=== PATIENT | female | born 1955 | race Caucasian/White ===

== ENCOUNTER 2016-12-16 22:09 | Emergency (ER) | payer BC ==
[~2016-12-16] VITALS: Ht 162.6 cm; Wt 101.8 kg
[~2016-12-16 22:09] MED LIST: IBUP200T58 PO; RANITADINE; azor
[2016-12-16] MEDS ORDERED: HYDR-971 PO (23:07)
--- NOTE | 2016-12-16 23:10 | PHYS DOC ---
General Chief Complaint: KNEE INJURY Stated Complaint: LEFT KNEE INJURY Time Seen by MD: 22:25 Source: patient Exam Limitations: no limitations Problems: History of Present Illness Initial Comments Pt is 61/F to ED c/o left knee pain. Pt has h/o meniscus tear, cortisone shot last week follows with ortho. Tonight tried to turn felt pop lateral joint line with severe pain. Ambulates on toes, no numbness/tingling/weakness/radiating sx. No prearrival tx. Some swelling noted, no leg giving out or bony TTP. No trauma. Onset: this evening Severity: severe Pain/Injury Location: left knee Method of Injury: twisted Modifying Factors: worse with jarring, worse with movement, improves with pain medication, improves with rest Allergies: Coded Allergies: latex (Verified Allergy, 07/27/13) Past Medical History Medical History: other (L meniscal tear) Surgical History: noncontributory Social History Smoker: non-smoker Alcohol: none Drugs: none Review of Systems Constitutional: denies chills, denies fever Respiratory: denies cough, denies shortness of breath Cardiovascular: denies chest pain, denies palpitations Gastrointestinal: denies nausea, denies vomiting Genitourinary: denies frequency, denies hematuria Musculoskeletal: see HPI Psychiatric/Neurological: denies numbness, denies paresthesia, denies weakness Physical Exam General Appearance: mild distress, obese Neck: non-tender, supple Cardiovascular/Respiratory: normal peripheral pulses, normal breath sounds Back: no CVA tenderness, no vertebral tenderness Knees: left knee other (joint line TTP no bony TTP, collateral ligs intact bridget inconclusive due to pt pain, mild effusion) Neurologic/Tendon: normal sensation, normal motor functions, normal tendon functions, responds to pain, no evidence tendon injury Psychiatric: alert, oriented x 3 Skin: normal color, warm/dry Orders, Labs, Meds L Knee: no acute osseous abnormality interp by me Departure Time of Disposition: 23:07 Disposition: 01 HOME, SELF-CARE Diagnosis: Internal Derangement Left Knee NOS Condition: GOOD Patient Instructions: Knee Effusion, RICE - Routine Care for Injuries, Easy-to- Read Additional Instructions: Nonweight bearing crutches only. Wear knee immobilizer when not up and active. RICE, see handout. Rx: norco 5mg #20 Take medication with food. Take OTC stool softeners and increase fluid intake to avoid constipation. Follow up with your orthopedic surgeon, call tomorrow to schedule. Return to ED with new or changing symptoms. NICANOR ÁLVAREZ DO December 16, 2016 23:10
[2016-12-16] MEDS ORDERED: ONDANSETRON ODT 4 MG TAB.RAPDIS PO ONE (23:15)
[2016-12-16] MEDS ORDERED: HYDROcodone/APAP 10/325 1 TAB TABLET PO ONE (23:15)
[2016-12-17 00:10] VITALS: BP 163/87
--- NOTE | 2016-12-17 07:38 | RAD ---
Left knee with patella, 4 views, 12/16/2016: History: Knee trauma pain No fracture or dislocation is identified. There is minimal marginal spurring at the knee joint and at the patellofemoral articulation. There is mild subcutaneous edema. IMPRESSION: No acute bony abnormality is detected.
== END 2016-12-17 00:10 | disposition home or self-care (01) ==
LOC: ER 22:09
DX: M23.92 Unspecified internal derangement of left knee (principal); Z91.040 Latex allergy status
CPT/HCPCS: 29505; 73564; 99284; Q0162

== ENCOUNTER → 2017-05-19 | Outpatient (CLI) | payer BC ==
[~2017-05-19] MED LIST changes: +HYDR-971 PO
--- NOTE | 2017-05-20 13:20 | RAD ---
DATE: May 19, 2017 EXAM: MAMMO EVELYN SCREENING BILATERAL HISTORY: Screening study. COMPARISON: September 22, 2009 This study was interpreted with the benefit of Computerized Aided Detection (CAD). 2-D digital mammographic views of both breasts were performed in the CC and MLO projections. 3-D digital tomosynthesis of both breasts were performed in the CC and MLO projections and reviewed on a computer workstation. FINDINGS: The breast parenchyma is heterogeneously dense. There are no dominant suspicious masses, suspicious microcalcifications or evidence of architectural distortion. IMPRESSION: No mammographic indicators for malignancy. BI-RADS CATEGORY: 1 NEGATIVE RECOMMENDED FOLLOW-UP: 12M 12 MONTH FOLLOW-UP PQRS compliance statement: Patient information was entered into a reminder system with a target due date May 20, 2018 for the next mammogram. Mammography is a sensitive method for finding small breast cancers, but it does not detect them all and is not a substitute for careful clinical examination. A negative mammogram does not negate a clinically suspicious finding and should not result in delay in biopsying a clinically suspicious abnormality. "Our facility is accredited by the [employer] Mammography Program." The patient's breast density may affect the ability of mammography to detect breast cancer. There are 4 categories of breast density, A, B, C and D. Breast density A means that most of the breast tissue is replaced with adipose tissue and therefore is not dense. Breast density B means that the breast tissue is mildly dense and scattered. Breast density C means that the breast tissue is heterogeneously dense. Breast density D means that the breast tissue is very dense. Breast densities especially C and D may decrease the sensitivity of mammography to detect breast cancer. Therefore, the patient may benefit from 3-D breast mammography (3D breast tomography) as a part of their screening mammogram. Insurance may or may not pay for this additional imaging. The patient's breast density based on today's mammogram is category C.
== END | disposition home or self-care (01) ==
LOC: MAMMO 15:11
PROVIDERS: ATTEND Nurse Practitioner Family
DX: Z12.31 Encounter for screening mammogram for malignant neoplasm of breast (principal)
CPT/HCPCS: 77063; G0202; 77067

== ENCOUNTER → 2018-05-22 | Outpatient (CLI) | payer BC ==
--- NOTE | 2018-05-22 16:31 | RAD ---
DATE: 05/22/2018 EXAM: MAMMO EVELYN SCREENING BILATERAL HISTORY: Routine screening COMPARISON: 05/19/2017 This study was interpreted with the benefit of Computerized Aided Detection (CAD). Breast Density: HETERO The breast parenchyma is heterogenously dense, which could reduce sensitivity of mammography. Breast parenchyma level C. FINDINGS: 2-D and 3-D tomosynthesis imaging was performed in CC and MLO projections. No new or enlarging breast densities are seen. No suspicious microcalcifications are evident. Medium sized left axillary lymph nodes are unchanged. IMPRESSION: There is no mammographic evidence of malignancy in either breast. BI-RADS CATEGORY: 2 BENIGN FINDING(S) RECOMMENDED FOLLOW-UP: 12M 12 MONTH FOLLOW-UP PQRS compliance statement: Patient information was entered into a reminder system with a target due date for the next mammogram. Mammography is a sensitive method for finding small breast cancers, but it does not detect them all and is not a substitute for careful clinical examination. A negative mammogram does not negate a clinically suspicious finding and should not result in delay in biopsying a clinically suspicious abnormality. "Our facility is accredited by the [employer] Mammography Program."
== END | disposition home or self-care (01) ==
LOC: MAMMO 12:56
PROVIDERS: ATTEND Nurse Practitioner Family
DX: Z12.31 Encounter for screening mammogram for malignant neoplasm of breast (principal)
CPT/HCPCS: 77063; 77067

== ENCOUNTER → 2018-09-13 | Outpatient (CLI) | payer MEDICARE, BC ==
[~2018-09-13] MED LIST changes: +HYDR-3165 PO; -HYDR-971 PO
--- NOTE | 2018-09-13 14:34 | RAD ---
Right infrapatellar ultrasound, 09/13/2018: HISTORY: Nodule The area of clinical concern in the infrapatellar region was carefully scanned. There is a 6 x 6 x 5 mm hypoechoic nodule in the superficial soft tissues at this level. Its margins are smooth. There is considerable internal color flow. No discrete vascular connection is seen to suggest pseudoaneurysm or partially thrombosed varix. It is centered within the subcutaneous fat rather than the skin. No other abnormality is seen in this region. IMPRESSION: Smooth vascular subcutaneous infrapatellar nodule as described above. Diagnostic considerations include a vascular malformation, neoplasm or inflammatory nodule. MR scanning may be useful for further evaluation, if clinically indicated. Electronically signed by: Toni Velazquez MD (09/13/2018 2:31 PM) [facility]
== END | disposition home or self-care (01) ==
LOC: US 09:47
PROVIDERS: ATTEND Orthopaedic Surgery Sports Medicine
DX: R22.41 Localized swelling, mass and lump, right lower limb (principal)
CPT/HCPCS: 76881

== ENCOUNTER → 2019-12-14 | Outpatient (CLI) | payer MEDICARE, BC ==
--- NOTE | 2019-12-14 17:22 | RAD ---
DATE: 12/14/2019 1:30 PM EXAM: MAMMO EVELYN SCREENING BILATERAL HISTORY: Screening COMPARISON: September 22, 2009, May 22, 2018 and May 19, 2017 Bilateral CC and MLO views of the breasts were performed. Bilateral breast tomosynthesis was performed in CC and MLO projections. This study was interpreted with the benefit of Computerized Aided Detection (CAD). FINDINGS: Breast Density: HETERO The breast parenchyma Is heterogeneously dense, which could reduce sensitivity of mammography. Breast parenchyma level C A 12 mm oval mass in the central posterior third left breast shows gradual increase in density. This needs additional imaging with targeted left breast ultrasound. This is at the approximate 6:00 position 11 cm from the nipple. The right mammogram is negative. IMPRESSION: Left breast mass, findings for which additional imaging is advised. BI-RADS CATEGORY: 0 INCOMPLETE: NEEDS ADDITIONAL IMAGING EVALUATION AND/OR PRIOR MAMMOGRAMS FOR COMPARISON. RECOMMENDED FOLLOW-UP: ADD ADDITIONAL IMAGING The patient will be contacted to return for additional imaging and a supplemental report will follow. PQRS compliance statement: Patient information was entered into a reminder system with a target due date for the next mammogram. Mammography is a sensitive method for finding small breast cancers, but it does not detect them all and is not a substitute for careful clinical examination. A negative mammogram does not negate a clinically suspicious finding and should not result in delay in biopsying a clinically suspicious abnormality. "Our facility is accredited by the [employer] Mammography Program."
== END | disposition home or self-care (01) ==
LOC: MAMMO 12:55
PROVIDERS: ATTEND Nurse Practitioner Family
DX: Z12.31 Encounter for screening mammogram for malignant neoplasm of breast (principal); N64.89 Other specified disorders of breast
CPT/HCPCS: 77063; 77067

== ENCOUNTER → 2019-12-20 | Outpatient (CLI) | payer MEDICARE, BC ==
--- NOTE | 2019-12-20 16:26 | RAD ---
EXAMINATION: BREAST LEFT, 12/20/2019 1:00 PM CLINICAL INDICATION: 64-year-old woman recalled from screening mammogram for left breast mass. COMPARISON: Screening mammogram 10/14/2019 TECHNIQUE: Targeted ultrasound of area of concern from 5:00 to 7:00 in the left breast was performed. FINDINGS: At 5:30, 7 cm from the nipple, there is a 1.2 x 1.1 x 0.6 cm ovoid hypoechoic mass. The mass is parallel in orientation, is avascular and has macrolobulated margins. Mild posterior acoustic enhancement. There is no abnormality seen at 6:00 11 cm from the nipple. Incidentally seen at 6:00, 4 cm from the nipple there is an ovoid circumscribed anechoic simple cyst with posterior acoustic enhancement measuring 0.9 x 0.8 x 0.4 cm. IMPRESSION: 1. Probably benign 1.2 cm ovoid hypoechoic mass at 5:30, 7 cm from the nipple, possibly a lymph node. This may correlate with the mammographic finding given similar size, however is not definitively in the same location, which could be due to differences in modality and mobility of the breast. Recommend 6 month follow-up left breast diagnostic mammogram and ultrasound to ensure stability. 2. BI-RADS 3-probably benign. 3. Recommend 6 month follow-up diagnostic left breast mammogram and ultrasound. The patient will receive a reminder letter before her next exam. Electronically signed by: Eunice Muhammad MD (12/20/2019 4:23 PM) [id number]
== END | disposition home or self-care (01) ==
LOC: US 12:48
PROVIDERS: ATTEND Nurse Practitioner Family
DX: N60.02 Solitary cyst of left breast (principal); N63.20 Unspecified lump in the left breast, unspecified quadrant
CPT/HCPCS: 76641

== ENCOUNTER → 2020-04-14 | Outpatient (CLI) | payer MEDICARE, BC ==
--- NOTE | 2020-04-14 15:31 | RAD ---
Study: CR ANKLE LEFT 3V Indication: Pain. Comparison: None. Findings: Cooper type B distal fibular fracture with approximately a cortical width displacement. On the oblique view, a small focus of ossification projects distal to the tip of the medial malleolus though the medial malleolus itself appears intact. This does not appear typical of a dorsal talar neck spur imaged in profile and is concerning for an avulsion fracture possibly originating from the talus. No gross malalignment at the ankle noting the absence of weightbearing. The talar dome is intact. Plantar calcaneal spurring and Achilles enthesopathy. Os peroneum. Edematous soft tissues at several locations such as at the lateral ankle. Impression: 1. Acute Cooper type B distal fibular fracture with minimal displacement. 2. Suspected small avulsion fracture only seen on the oblique view projecting at the dorsal talar neck. No donor site from the medial malleolus is seen and this may be originating from the talus itself. Recommend attention on follow-up. 3. Limited assessment for any instability at the ankle given the absence of weightbearing. No gross malalignment on this exam. Electronically signed by: ANSLEY HSU MD (04/14/2020 3:28 PM) [id number]
== END | disposition home or self-care (01) ==
LOC: DXRAD 13:14
PROVIDERS: ATTEND Physician Assistant
DX: S82.492A Other fracture of shaft of left fibula, initial encounter for closed fracture (principal); X58.XXXA Exposure to other specified factors, initial encounter; Y93.89 Activity, other specified; Y92.89 Other specified places as the place of occurrence of the external cause; Y99.8 Other external cause status
CPT/HCPCS: 73610

== ENCOUNTER → 2020-05-07 | Outpatient (CLI) | payer MEDICARE, BC ==
--- NOTE | 2020-05-07 15:50 | RAD ---
EXAM: ANKLE LEFT 3V, FOOT RIGHT 3V 05/07/2020 12:00 AM CLINICAL INDICATION:Follow-up fracture COMPARISON:Left ankle radiograph 04/14/2020 TECHNIQUE:3 views of left ankle, 3 views of the right foot FINDINGS: Left ankle: The minimally displaced oblique distal fibular fracture is unchanged in alignment. Fracture lines are slightly less distinct but there is no significant callus formation. Ankle mortise is symmetric and talar dome is intact. Tiny dorsal talar neck avulsion fractures unchanged. Calcaneal enthesophytes are redemonstrated. There is soft tissue swelling, greatest laterally. Right foot: There is an oblique, displaced fracture of the base of the fifth metatarsal. This may be subacute. No other fracture or malalignment. Joint spaces are maintained. Mild soft tissue swelling along the dorsum of the foot. IMPRESSION: Left ankle: Unchanged distal fibular fracture and tiny dorsal talar neck fracture. Right foot: Displaced fracture at the base of the fifth metatarsal. Electronically signed by: Eunice Muhammad MD (05/07/2020 3:47 PM) [id number]
== END ==
LOC: DXRAD 09:58
PROVIDERS: ATTEND Physician Assistant
DX: S82.831A Other fracture of upper and lower end of right fibula, initial encounter for closed fracture (principal); S82.65XD Nondisplaced fracture of lateral malleolus of left fibula, subsequent encounter for closed fracture with routine healing; X58.XXXA Exposure to other specified factors, initial encounter; Y93.89 Activity, other specified; Y92.89 Other specified places as the place of occurrence of the external cause; Y99.8 Other external cause status; X58.XXXD Exposure to other specified factors, subsequent encounter
CPT/HCPCS: 73610; 73630

== ENCOUNTER → 2020-07-11 | Outpatient (CLI) | payer MEDICARE, BC ==
--- NOTE | 2020-07-11 16:15 | RAD ---
Examination: MG DIGITAL UNILAT DIAGNOSTIC MAMMO WITH EVELYN History: LEFT BREAST MASS / Comparison/Correlation: 12/14/2019, 05/20/2018, 05/19/2017, 09/22/2009, 09/11/2008 mammogram, 12/20/2019 (breast ultrasound Technique: MLO and CC digital tomosynthesis (3D) images of the left breast were obtained. Radiologis t reviewed these images on dedicated workstation. Findings: Breast Tissue Density C : The breasts are heterogeneously dense, which may obscure small masses. There are no dominant masses, suspicious microcalcifications, or architectural distortion. Left [address] st mass which has corresponding finding on multiple previous exams and appears to correspond with the ultrasound finding of a lymph node is present without substantial change. IMPRESSION: Follow-up of the time of annual mammography is recommended. Ultrasound may be needed. BI-RADS category 3: Probably benign. The images were reviewed with computer-aided detection. Patient information is entered into reminder system with a target due date for the next screening emily mogram. Mammography is the most sensitive method for finding small breast cancers, but it does not detect the m all and is not a substitute for careful clinical examination. A negative mammogram does not negate a clinically suspicious finding and should not result in delay in biopsying a clinically suspicious a bnormality. "Our facility is accredited by the [employer] Mammography Program." Electronically signed by: Barry Everett MD (07/11/2020 4:13 PM) [email or web address]
== END ==
LOC: MAMMO 13:31
PROVIDERS: ATTEND Nurse Practitioner Family
DX: N63.20 Unspecified lump in the left breast, unspecified quadrant (principal)
CPT/HCPCS: 77065; G0279; 77061

== ENCOUNTER → 2021-01-22 | Outpatient (CLI) | payer MEDICARE, BC ==
--- NOTE | 2021-01-23 11:11 | RAD ---
DATE: 01/22/2021 EXAM: MAMMO EVELYNKatlyn JACOB, BREAST LEFT HISTORY: Six-month follow-up of probably benign left breast mass. Annual mammogram for COMPARISON: Screening mammogram 12/14/2019, left breast ultrasound 12/20/2019, left breast mammogram 07/11/2020, screening mammograms 05/22/2018, 05/19/2017, and 09/22/2009 This study was interpreted with the benefit of Computerized Aided Detection (CAD). Breast Density: HETERO The breast parenchyma is heterogenously dense, which could reduce sensitivity of mammography. Breast parenchyma level C. FINDINGS: MAMMOGRAM: The left focal asymmetry at approximately 5:00, 11 cm posterior to the nipple is unchanged. No new mass, suspicious calcifications, or architectural distortion in either breast. ULTRASOUND: Focused left breast ultrasound was performed in the area of concern. An a probably benign lymph node at 5:30, 7 cm from the nipple is unchanged. An anechoic simple cyst at 6:00 4 cm the nipple is unchanged. No sonographic correlation for the focal asymmetry around 5:00 11 cm from the nipple. IMPRESSION: 1. Unchanged focal asymmetry in the left breast around 5:00 11 cm from the nipple without sonographic correlation. Unchanged probably benign lymph node at 5:30, 7 cm the nipple and simple cyst at 6:00, 7 cm from the nipple in the left breast. 2. No suspicious abnormal in the right breast. 3. Recommend diagnostic mammogram in 12 months. BI-RADS CATEGORY: 3 PROBABLY BENIGN FINDING(S)-SHORT INTERVAL FOLLOW-UP SUGGESTED RECOMMENDED FOLLOW-UP: 12M 12 MONTH FOLLOW-UP PQRS compliance statement: Patient information was entered into a reminder system with a target due date for the next mammogram. Mammography is a sensitive method for finding small breast cancers, but it does not detect them all and is not a substitute for careful clinical examination. A negative mammogram does not negate a clinically suspicious finding and should not result in delay in biopsying a clinically suspicious abnormality. "Our facility is accredited by the [employer] Mammography Program."
== END ==
LOC: MAMMO 12:47
PROVIDERS: ATTEND Nurse Practitioner Family
DX: N64.89 Other specified disorders of breast (principal); N60.02 Solitary cyst of left breast
CPT/HCPCS: 76641; 77066; G0279; 77062

== ENCOUNTER 2021-05-15 13:14 | Emergency (ER) | payer MEDICARE, BC ==
[~2021-05-15] VITALS: Ht 162.6 cm; Wt 111.9 kg
[2021-05-15] MEDS ORDERED: LABETALOL 20 MG/4 ML DISP.SYRIN. IVP ONE (13:45)
[2021-05-15 14:04] LABS: BASO % 1 % (0-3); EOS # 0.1 x10^3/uL (0.0-0.7); EOS % 1 % (0-3); HEMOGLOBIN 14.1 g/dL (12.0-15.5); LYMPH # 0.8 x10^3/uL (1.0-4.8); LYMPH % 10 % (24-48); MEAN CORPUSCULAR HEMOGLOBIN 32 pg (25-35); MEAN CORPUSCULAR HGB CONC 34 g/dL (31-37); MEAN CORPUSCULAR VOLUME 94 fL (79-100); MONO # 0.6 x10^3/uL (0.0-1.1); MONO % 7 % (0-9); NEUT # 6.4 x10^3uL (1.8-7.7); NEUT % 82 % (31-73); PLATELET COUNT 181 x10^3/uL (140-400); RED BLOOD COUNT 4.48 x10^6/uL (3.50-5.40); RED CELL DISTRIBUTION WIDTH 13.2 % (11.5-14.5); WHITE BLOOD COUNT 7.8 x10^3/uL (4.0-11.0)
[2021-05-15] MEDS ORDERED: ACETAMINOPHEN 500 MG TABLET PO ONE ×2 (14:19→14:30)
[2021-05-15 14:20] LABS: CALCIUM 8.8 mg/dL (8.5-10.1); CREATININE 0.8 mg/dL (0.6-1.0); GFR 71.5; POTASSIUM 3.7 mmol/L (3.5-5.1)
[2021-05-15 15:09] LABS: COLOR,URINE YELLOW
[2021-05-15 15:10] LABS: BACTERIA,URINE 0 /HPF (0-FEW); BILIRUBIN,URINE SMALL (NEG); CLARITY,URINE HAZY; GLUCOSE,URINE NEG (NEG); NITRITE,URINE NEG (NEG); RBC,URINE 0 /HPF (0-2); WBC,URINE 0 /HPF (0-4)
[2021-05-15 15:11] LABS: SQUAMOUS EPITHELIAL CELL,UR MANY /LPF
[2021-05-15] MEDS ORDERED: HYDR12.58 PO (15:25)
[2021-05-15] MEDS ORDERED: CYCL7.5T21 PO (15:28)
--- NOTE | 2021-05-15 15:29 | PHYS DOC ---
Past History Past Medical History: Diverticulitis, Fibromyalgia, Hypertension (BRIDGET GARCIA) Past Surgical History: Cholecystectomy, Hysterectomy, Other Additional Past Surgical Histo: GASTRIC SLEEVE, COLON SURGERY, HERNIA REPAIR (BRIDGET GARCIA) Smoking: Non-smoker Alcohol Use: None Drug Use: None (BRIDGET GARCIA) General Adult EDM: Chief Complaint: HYPERTENSION HPI: HPI: Patient is a 65 year old female with history of hypertension who presents as recommended by her PCP with 3 days of labile hypertension and headache. Patient states the headache "feels like a rubber band" and pressure. Patient report on Tuesday, she was getting a CT abdomen pelvis to evaluate for kidney stones under advisement of her primary care physician. In the office there, her blood pressure was 200s/100s, she is unsure of the exact number. She had no symptoms at that time, so her primary care doctor decided to take a watch and wait approach and sent her home. That evening, she developed headache nausea and has felt fatigued the past 2 days. Patient reports that soon after taking her blood pressure medications, that her blood pressure does go down, however it comes right back up a couple of hours later. She reports one brief episode of a "chest flutter." Patient has been taking Tylenol every 4 hours at home with minimal symptom relief for her headache. Patient uses a CPAP machine to sleep, however has not been using it recently due to a recall on the cleaning product. Her primary care provider said that she may replace the tubing resume use of the CPAP, which she plans to do tonight. Patient reports family history of renal disease and hypertension. Patient denies fever, chills, vision changes, cough, shortness of breath, abdominal pain, N/V/D, dysuria and has no other complaints at this time. (BRIDGET GARCIA) Review of Systems: Review of Systems: 12 system ROS negative except as mentioned in HPI. (BRIDGET GARCIA) Current Medications: Current Meds: Current Medications Medications (Trade) Dose Ordered Sig/Navdeep Start Time Stop Time Status Last Admin Dose Admin Acetaminophen (Tylenol) 500 mg STK-MED ONCE 05/15/21 14:19 05/15/21 14:20 DC Labetalol HCl (Normodyne) 20 mg 1X ONCE 05/15/21 13:45 05/15/21 13:56 DC 05/15/21 14:14 10 MG (BRIDGET GARCIA) Allergies: Allergies: Allergies Coded Allergies Type Severity Reaction Last Updated Verified latex Allergy Unknown 01/22/21 Yes (BRIDGET GARCIA) Physical Exam: PE: Constitutional: Well developed, well nourished, no acute distress, non-toxic appearance. Eyes: PERRLA, EOMI, conjunctiva normal, no discharge. Cardiovascular: Heart rate regular rhythm, no murmur, no JVD. BP currently 184/116. Lungs & Thorax: Bilateral breath sounds clear to auscultation. Skin: Warm, dry, no erythema, no rash. Extremities: No tenderness, no cyanosis, no clubbing, ROM intact, no edema. Neurologic: Alert and oriented x3, normal motor function, normal sensory function, no focal deficits noted. Psychologic: Affect normal, judgement normal, mood normal. (BRIDGET GARCIA) Current Patient Data: Labs: Laboratory Tests Test 05/15/21 13:45 05/15/21 14:35 White Blood Count 7.8 x10^3/uL (4.0-11.0) Red Blood Count 4.48 x10^6/uL (3.50-5.40) Hemoglobin 14.1 g/dL (12.0-15.5) Hematocrit 42.0 % (36.0-47.0) Mean Corpuscular Volume 94 fL (79-100) Mean Corpuscular Hemoglobin 32 pg (25-35) Mean Corpuscular Hemoglobin Concent 34 g/dL (31-37) Red Cell Distribution Width 13.2 % (11.5-14.5) Platelet Count 181 x10^3/uL (140-400) Neutrophils (%) (Auto) 82 % (31-73) H Lymphocytes (%) (Auto) 10 % (24-48) L Monocytes (%) (Auto) 7 % (0-9) Eosinophils (%) (Auto) 1 % (0-3) Basophils (%) (Auto) 1 % (0-3) Neutrophils # (Auto) 6.4 x10^3uL (1.8-7.7) Lymphocytes # (Auto) 0.8 x10^3/uL (1.0-4.8) L Monocytes # (Auto) 0.6 x10^3/uL (0.0-1.1) Eosinophils # (Auto) 0.1 x10^3/uL (0.0-0.7) Basophils # (Auto) 0.0 x10^3/uL (0.0-0.2) Sodium Level 138 mmol/L (136-145) Potassium Level 3.7 mmol/L (3.5-5.1) Chloride Level 106 mmol/L (98-107) Carbon Dioxide Level 25 mmol/L (21-32) Anion Gap 7 (6-14) Blood Urea Nitrogen 14 mg/dL (7-20) Creatinine 0.8 mg/dL (0.6-1.0) Estimated GFR (Cockcroft-Gault) 71.5 Glucose Level 92 mg/dL (70-99) Calcium Level 8.8 mg/dL (8.5-10.1) Creatine Kinase 34 U/L (26-192) Creatine Kinase MB (Mass) 0.9 ng/mL (0.0-3.6) Creatine Kinase MB Relative Index 2.6 % (0-4) Troponin I Quantitative < 0.017 ng/mL (0-0.055) Urine Collection Type Clean catch Urine Color Yellow Urine Clarity Hazy Urine pH 6.0 Urine Specific [place] 1.020 Urine Protein Neg (NEG-TRACE) Urine Glucose (UA) Neg mg/dL (NEG) Urine Ketones (Stick) Trace mg/dL (NEG) Urine Blood Neg (NEG) Urine Nitrite Neg (NEG) Urine Bilirubin Small (NEG) Urine Urobilinogen Dipstick 2.0 mg/dL (0.2 mg/dL) Urine Leukocyte Esterase Neg (NEG) Urine RBC 0 /HPF (0-2) Urine WBC 0 /HPF (0-4) Urine Squamous Epithelial Cells Many /LPF Urine Bacteria 0 /HPF (0-FEW) Vital Signs: Vital Signs Date Time Temp Pulse Resp B/P (MAP) Pulse Ox O2 Delivery O2 Flow Rate FiO2 05/15/21 15:12 79 18 137/76 (96) 96 Room Air 05/15/21 13:32 98.5 (BRIDGET GARCIA) EKG: EKG: EKG Interpreted by Dr. Mckeon: Regular rate and rhythm 94 bpm with no ectopic beats. No concerning ST-T wave changes. Regular QR interval. (BRIDGET GARCIA) Heart Score: C/O Chest Pain: Yes HEART Score for Chest Pain: HEART Score for Chest Pain Response (Comments) Value History Slighlty/Non-Suspicious 0 ECG Normal 0 Age > 65 2 Risk Factors 1 or 2 Risk Factors 1 Troponin < Normal Limit 0 Total 3 Risk Factors: Risk Factors: HTN Risk Scores: Score 0 - 3: 2.5% MACE over next 6 weeks - Discharge Home Score 4 - 6: 20.3% MACE over next 6 weeks - Admit for Clinical Observation Score 7 - 10: 72.7% MACE over next 6 weeks - Early Invasive Strategies (BRIDGET GARCIA) Course & Med Decision Making: Course & Med Decision Making Pertinent Labs and Imaging studies reviewed. (See chart for details) Work-up today was largely reassuring, and patient's blood pressure did come down to normal range. Patient is currently on the max dose of amlodipine, so 12.5 hydrochlorothiazide will be prescribed for her to add to her blood pressure regimen until she is able to see her primary care and/or cardiology. Additionally, I prescribed a muscle relaxer for the patient in order to improve patient's tension headache. She is instructed to take Tylenol according to box instructions. Patient's daughter is at bedside. Both patient and her daughter understand and are agreeable to discharge plan. (BRIDGET GARCIA) Course & Med Decision Making I was the Attending physician on the above date of service of this patient. This patient was evaluated, examined, treated, and dispositioned from the emergency department by the mid-level practitioner. I reviewed case with midlevel practitioner and agree patient is safe for discharge with blood pressure log and new prescription of HCTZ to improved blood pressure which is likely causing patient's tension type headache. No indication for lumbar puncture or other fur ther aggressive work-up Electronically signed, Idania Mckeon DO (IDANIA MCKEON DO) Jame Disclaimer: Jame Disclaimer: This electronic medical record was generated, in whole or in part, using a voice recognition dictation system. (BRIDGET GARCIA) Departure Departure: Impression: Primary Impression: Hypertension not at goal Additional Impression: Tension headache Disposition: 01 HOME / SELF CARE / HOMELESS Condition: STABLE Referrals: ESTEFANIA OZUNA, [facility] OPERATOR[facility] (PCP) Patient Instructions: Hypertension, [id number], Tension Headache, [id number] Additional Instructions: Your work-up in the department today was very reassuring. Your EKG as well as cardiac enzymes were within normal limits. As discussed, you should keep a blood pressure log at home to take with you when you visit your leakage tester of choice and your primary care doctor. This is good habit, and should continue even after your blood pressure is well controlled. Additionally, you are prescribed a muscle relaxer to aid in treating your tension headache. You should take these before bed, and may take another 12 hours later if needed. Please return to the emergency department if you have worsening symptoms or new symptoms. Scripts Cyclobenzaprine Hcl (FEXMID) 7.5 Mg Tablet 1 TAB PO BID for spasm for 10 Days, #20 TAB 0 Refills Prov: BRIDGET GARCIA 05/15/21 Hydrochlorothiazide (HYDROCHLOROTHIAZIDE TABLET) 12.5 Mg Tablet 12.5 MG PO DAILY for DIURETIC for 30 Days, #30 TAB 0 Refills Prov: BRIDGET GARCIA 05/15/21 BRIDGET GARCIA May 15, 2021 15:29 IDANIA MCKEON DO May 16, 2021 12:47
[2021-05-15 15:59] VITALS: BP 136/79
--- NOTE | 2021-05-15 22:56 | EKG ---
[address] [id number] Test Date: 2021-05-15 Test Time: 13:29:51 Pat Name: OWEN FORTUNE Department: Room: Gender: F Configuration Engineer: SHERON : 1955 Requested By: BRIDGET GARCIA Order Number: [id number] Reading MD: Sixto Collado MD Measurements Intervals [place] Rate: 94 P: 57 VA: 168 QRS: 93 QRSD: 84 T: 24 QT: 340 QTc: 425 Interpretive Statements SINUS RHYTHM NON-SPECIFIC ST/T CHANGES Electronically Signed On 05-18-2021 10:41:27 CDT by Sixto Collado MD
== END 2021-05-15 15:59 | disposition home or self-care (01) ==
LOC: ER 13:14
DX: I10 Essential (primary) hypertension (principal); G44.209 Tension-type headache, unspecified, not intractable; Z91.040 Latex allergy status; Z90.49 Acquired absence of other specified parts of digestive tract; Z90.710 Acquired absence of both cervix and uterus
CPT/HCPCS: 36415; 80048; 81001; 82553; 84484; 85025; 93005; 96374; 99284; J3490